=== PATIENT | female | born 1985 | race Two or more races ===

== ENCOUNTER 2019-05-28 19:05 | Emergency (ER) | payer OTHER ==
[~2019-05-28] VITALS: Ht 170.2 cm; Wt 70.5 kg
[2019-05-28 19:50] LABS: BASOPHILS % (AUTO) 0.4 % (0.0-2.0); EOSINOPHILS % (AUTO) 0.9 % (1.0-6.0); HEMATOCRIT 25.3 % (36-46); LYMPHOCYTES # (AUTO) 0.8 K/uL (1.0-4.8); LYMPHOCYTES % (AUTO) 5.4 % (22.0-44.0); MEAN CORPUSCULAR HEMOGLOBIN 24.5 pg (26.0-34.0); MEAN CORPUSCULAR HGB CONC 31.8 G/dL (31.0-37.0); MEAN CORPUSCULAR VOLUME 77 fL (80-100); MONOCYTES # (AUTO) 0.5 K/uL (0.1-1.0); MONOCYTES % (AUTO) 3.4 % (2.0-9.0); NEUTROPHILS # (AUTO) 13.6 K/uL (1.8-7.7); PLATELET COUNT (AUTO) 337 K/uL (150-450); RED BLOOD CELL COUNT(AUTO) 3.28 MIL/uL (4.00-5.20); RED CELL DISTRIBUTION WIDTH 17.1 % (11.5-14.5)
[2019-05-28 19:51] LABS: NEUTROPHILS % (AUTO) 89.9 % (40.0-70.0)
[2019-05-28] MEDS ORDERED: MISOPROSTOL 100 MCG TABLET PO ONE (21:15)
[2019-05-28] MEDS ORDERED: HYDROCODONE/ACETAMINOPHEN 5-325 MG TABLET PO ONE (22:00)
[2019-05-28 22:22] VITALS: BP 118/63
== END 2019-05-29 01:30 | disposition home or self-care (01) ==
LOC: EMS 19:07
DX: O03.9 Complete or unspecified spontaneous abortion without complication (principal); F11.90 Opioid use, unspecified, uncomplicated; Z3A.17 17 weeks gestation of pregnancy; Z90.89 Acquired absence of other organs; Z88.1 Allergy status to other antibiotic agents; Z88.8 Allergy status to other drugs, medicaments and biological substances
CPT/HCPCS: 76801; 76817; 86850; 86900; 86901; 88300; 88305